=== PATIENT | female | born 1985 | race Caucasian/White ===

== ENCOUNTER 2023-08-28 16:56 | Emergency (ER) | payer OTHER, SELFPAY ==
[2023-08-28] VITALS (7 sets, daily range): BP systolic 102–152; BP diastolic 60–99
[2023-08-28 17:23] LABS: % Basophils 0.7 % (0-2); % Eosinophils 0.4 % (0-6); % Immature Granulocytes 0.3 % (0-0.5); % Lymphocytes 27.6 % (20.5-51.1); % Monocytes 4.3 % (1.7-9.3); % Neutrophils 66.7 % (42.2-75.2); Absolute Basophils 0.1 10^3/uL (0-0.2); Absolute Lymphocytes 2.9 10^3/uL (1.2-3.4); Absolute Monocytes 0.5 10^3/uL (0.1-0.6); Hematocrit 42.9 % (37.0-47.0); Hemoglobin 14.5 g/dL (12.0-16.0); Mean Corp Hgb Conc. 33.8 g/dL (33.0-37.0); Mean Corpuscular Hgb 29.7 pg (27.0-31.0); Mean Corpuscular Volume 87.9 fL (81.0-99.0); Mean Platelet Volume 8.7 fL (7.4-10.4); Nucleated Red Blood Cells % 0 %; Platelet Count 316 10^3/uL (130-400); Red Blood Cell Count 4.88 10^6/uL (4.20-5.40); Red Cell Dist. Width 12.6 % (11.5-14.5); White Blood Cell Count 10.5 10^3/uL (4.8-10.8)
[2023-08-28 17:36] LABS: ALT (SGPT) 21 U/L (0-35); AST (SGOT) 21 U/L (14-36); Albumin 4.6 g/dl (3.5-5.0); Alkaline Phosphatase 75 U/L (38-126); Blood Urea Nitrogen 15 mg/dl (7-17); Calcium 10.3 mg/dl (8.4-10.2); Carbon Dioxide 21 mmol/L (22-30); Chloride 106 mmol/L (98-107); Glucose 95 mg/dl (70-99); Potassium 3.8 mmol/L (3.5-5.1); Sodium 138 mmol/L (135-145); Total Bilirubin 0.4 mg/dl (0.2-1.3); Total Protein 7.8 g/dl (6.3-8.2); eGFR > 60.00
[2023-08-28 18:10] LABS: Troponin I < 0.012 ng/ml
--- NOTE | 2023-08-28 18:54 | ED.GENMED ---
History of Present Illness
General
Chief Complaint: Cardiac Symptoms
Source: patient
Exam Limitations: none
Time Seen by Provider: 08/28/23 18:32
Travel History
Have you had any contact with someone who has COVID-19?: No
Do you have any symptoms of coronavirus? Fever > 100 degrees, chills, cough, shortness of breath, sore throat, loss of taste or smell, muscle aches, or headache?: No
History of Present Illness
History of Present Illness:
This is a 38 year old female that comes in with c/o chest pain. States that for the past 1.5 weeks she has chest pain on the left side. States that she can't take a deep breath as this increases her pain. States that today she has pain under her
breast and this goes around to her Shoulder blade. States that the pain comes and goes and seems to be worse in the morning and at night. States that she has taken Naproxen during the day and this may be making her feel better during the day. States
that is is like a arben for a second and then it can go away and come right back. States that she did have some nausea. Denies any fever, chills, SOB, abd pain, vomiting, diarrhea, headache, dizziness, urinary burning.
Past History
Past History
ED Past Medical History: Arrthythmia (tachycardia) and Valvular disease (Mitral valve prolapse)
ED Past Surgical History: None
Social History
Tobacco: Non-smoker
Alcohol: None
Personal:
Living: with family
Review of Systems
Review of Systems
All Other Systems: ROS reviewed and negative except as documented in HPI and ROS
Constitutional: Reports no symptoms; Denies fever or chills
EENT: Reports no symptoms
Respiratory: Denies cough or trouble breathing
Cardiac: Reports chest pain
ABD/GI: Reports nausea; Denies abdominal pain, vomiting or diarrhea
: Reports no symptoms; Denies dysuria, frequency or urgency
Musculoskeletal: Reports no symptoms
Skin: Reports no symptoms
Neurological: Reports no symptoms; Denies dizzy or headache
Psychiatric: Reports no symptoms
Phy Exam
General Physical Exam
General Presentation: well appearing and no apparent distress
General age: appears stated age
General Skin: warm and dry
General Habitus: normal
General Mental: alert
General Hydration: appears well hydrated
ENT Exam
ENT Exam: TM's normal, pharynx normal and neck supple
Eye Exam
Eye Exam: EOMI
Cardiovascular Exam
Cardiovascular Exam: no edema, no murmur, normal peripheral pulses and tachycardia
Pulmonary Exam
Pulmonary Exam: lungs clear, no respiratory distress, no rales, chest non tender, no crackles, no rhonchi, no wheezing and no cough
Gastrointestinal Exam
Gastrointestinal Exam: normal bowel sounds, non tender, soft, no organomegaly, no pulsatile mass and non distended
Musculoskeletal Exam
Musculoskeletal Exam: full ROM and no edema
Skin Exam
Skin Exam: normal color, warm/dry, no rash and no petechia
Psychiatric Exam
Psychiatric Exam: normal mood/affect
Course
Orders/Labs/Results
Orders:
Orders
08/28/23 16:58
EKG [Electrocardiogram (*1)] Urgent
Reason for Study: Chest Pain
EKG- Treatment ONCE
08/28/23 17:13
Complete Blood Count/With Diff Urgent
Troponin I Urgent
08/28/23 17:14
Comprehensive Metabolic Panel Urgent
HCG, Serum Qualitative Screen Urgent
Comment: ADD ON
08/28/23 18:44
EKG- Treatment ONCE
08/28/23 18:58
D-Dimer Urgent
08/28/23 19:52
CT Chest Pe Study Urgent
Comment:
Reason For Exam: Elevated d-dimer, Chest pain,
08/28/23 20:00
Electrocardiogram (*1) Urgent
Reason for Study: Chest Pain
Other Reason for Exam: Repeat with Troponin
08/28/23 20:05
Troponin I Urgent
08/28/23 20:19
Add On- LAB Urgent
Tests Added?: HCG
Abnormal Lab Results
08/28/23 08/28/23 08/28/23
17:13 17:14 18:58
Absolute Neuts (auto) 7.0 H 10^3/uL
(1.4-6.5)
D-Dimer 0.80 H ug/mlFEU
(0.00-0.50)
Carbon Dioxide 21 L mmol/L
(22-30)
Calcium 10.3 H mg/dl
(8.4-10.2)
08/28/23 17:13
08/28/23 17:14
Labs unremarkable. Troponin <0.012, D-dimer 0.80
Second Troponin <0.012
Vital Signs
Initial and Last Documented VS:
Initial Vital Signs
Temp Pulse Resp BP Pulse Ox
98.3 F 113 20 152/99 98
08/28/23 17:02 08/28/23 17:02 08/28/23 17:02 08/28/23 17:02 08/28/23 17:02
Last Documented Vital Signs
Temp Pulse Resp BP Pulse Ox
98.3 F 97 21 108/60 98
08/28/23 17:02 08/28/23 22:22 08/28/23 22:22 08/28/23 22:22 08/28/23 17:02
MDM/Problems Addressed
Differential Diagnosis Includes:
PE, Coronary syndrome.
MDM/Problems Addressed:
This is a 38 year old female that comes in with c/o left sided chest pain. States that she has pain with deep breathing and the pain is under her breast and wraps around to the back.
Will get labs, D-dimer and chest X-ray.
Back into see patient. Explained that her D-dimer is elevated. Will get CT of the chest.
Back into see patient. Explained that her second Troponin was also normal and that the CT is negative for any PE. There is some air trapping so will give patient an albuteral inhaler. Patient to also follow up with her Operations Specialists. Patient to
return with increased or changing chest pain or any other concerns
Chronic conditions affecting care:
NA
Acute Exacerbation and/or Progression of Chronic Illness:
NA
*Radiology
Radiology exam reviewed: radiology read reviewed (CT-NO evidence of central pulmonary embolism. Borderline aneurysmal dilation of the ascending thoracic aorta at 3.7cm. No findings to suggest thorachic aortic dissection. Mild to moderate overall
mosaic attenuation pattern throughout the lungs bilaterally, nonspecific, could represent some ) and other (CT cont- Obstructive small airways disease with air trapping or mild pulmonary edema pattern. )
*Pulse Oximetry
Patient hypoxic: no
*EKG
Interpreted by ED Provider?: Yes
Heart Rate: 97
Rate: normal
Rhythm: sinus
[place]: left axis deviation
Interval: normal interval
QRS Pattern: normal QRS
Ischemia: no ischemia
*Critical Care Note
Total Time (30-74mins, 75-104mins- exclusive of procedures): Not Applicable
ED Attending Note
-
Portions of this chart may have been created with voice recognition software.� Occasional wrong word or��sound alike� substitutions may have occurred due to the inherent limitations of voice recognition software.
Discharge Plan
Departure
Patient Disposition: Home (Routine Discharge)
Date of Disposition: 08/28/23
Time of Disposition: 23:25
Patient with high blood pressure during this ER visit?: No
Condition: Good
Covid-19: Not Applicable
Discharge Problem:
Chest pain
Instructions: Chest Pain (DC), Chest Pain NON-[facility] Operations Specialists Follow Up
Prescriptions:
New
albuterol sulfate 90 mcg/actuation HFA aerosol inhaler
2 puff inhalation Q6H PRN (Reason: shortness of breath or wheezing) Qty: 6.7 0RF
Referrals:
Elisa Lehman, DO [Family Provider] - Follow up in 2-3 days
Activity Restrictions/Additional Instructions:
As discussed, your blood work shows that your Cardiac labs are normal. Your CT of the chest is negative for any PE but there is some air trapping. This may be the starting of a little asthma. You have had a prescription for Albuterol inhaler to use
for increased SOB sent to your pharmacy. Please call your cad specialist for further evaluation. IF YOU HAVE INCREASED CHEST PAIN, SOB OR ANY OTHER CONCERNS PLEASE RETURN TO THE EMERGENCY ROOM.
Interventions
Interventions:
*Risk Screen - Suicide Last Done: 08/28/23 17:02
*General Assessment Last Done: 08/28/23 17:02
*Neglect/Abuse Screening Last Done: 08/28/23 17:02
ED- Fall Risk Assessment Last Done: 08/28/23 19:01
*ED COVID-19 Vaccine History Last Done: 08/28/23 19:02
ED- Cardiac Assessment Last Done: 08/28/23 19:01
ED- Pulmonary Assessment Last Done: 08/28/23 19:01
Discharge Date and Time
Print Language: RWANDAN
[2023-08-28 20:40] LABS: Troponin I < 0.012 ng/ml
[2023-08-28 20:52] LABS: HCG, Serum Qualitative Screen Negative
[2023-08-29 00:10] LABS: NT-proBNP < 20.0 pg/ml
== END 2023-08-28 23:46 | disposition home or self-care (01) ==
LOC: EMR 16:56
PROVIDERS: Clinical Nurse Specialist Family Health; EMERGENCY PHYSICIAN Emergency Medicine; FAMILY PHYSICIAN Family Medicine
DX: R07.89 Other chest pain (principal); R07.81 Pleurodynia; R11.0 Nausea; I34.1 Nonrheumatic mitral (valve) prolapse; Z88.0 Allergy status to penicillin
CPT/HCPCS: 99285; 71275; 80053; 83880; 84484; 84703; 85025; 85379; 93005; Q9967